=== PATIENT | male | born 1955 | race Caucasian/White ===

== ENCOUNTER 2021-01-08 14:09 | Observation (INO) ==
[2021-01-08 15:33] LABS: Basophils % 0.8 % (0.0-0.8); Eosinophils % 1.6 % (0.00-10.9); Hematocrit 37.8 VOL% (42.0-52.0); Hemoglobin 12.9 GM/DL (14.0-18.0); Immature Granulocytes % 0.8 %; Immature Granulocytes Absolute 0.01 #; Lymphocytes # 0.7 10*3/uL (1.4-4.0); Lymphocytes % 52.4 % (21.2-54.2); Mean Corpuscular HGB Conc 34.1 GM/DL (32-36); Mean Corpuscular Volume 91.5 FL (87-102); Mean Platelet Volume 9.2 FL (9.6-12.0); Monocytes % 37.3 % (1.7-12.7); Neutrophils % 7.1 % (38.7-73.9); Platelet Count 129 T/CUMM (130-400); Red Blood Count 4.13 MC/CUMM (3.8-5.5); Red Cell Distribution Width 14.5 % (9.3-17.3); White Blood Count 1.3 T/CUMM (4-12)
[2021-01-08 15:50] LABS: Albumin 3.9 G/DL (3.4-5.0); Bilirubin,Total 1.3 MG/DL (0.20-1.00); Calcium 9.5 MG/DL (8.5-10.1); Potassium 3.6 MMOL/L (3.5-5.1); Total Protein 7.3 G/DL (6.4-8.2)
[2021-01-08 16:29] LABS: Eosinophils 2 % (0-10); Lymphocytes 57 % (20-55); Nucleated Red Blood Cells 2 (0-5); Segmented Neutrophils 1 % (50-85); Total Cells Counted 100
[2021-01-08 16:30] LABS: Anisocytosis Slight
[2021-01-08 16:31] LABS: Platelet Estimate Decreased; Polychromasia Slight
[2021-01-08 17:10] LABS: Bilirubin,Urine Negative (Negative); Blood, Urine Small mg/dL (Negative); Glucose,Urine (UA) >=500 mg/dL (Negative); Ketones,Urine 5 mg/dL (Negative); Mucus,Urine Occasional /LPF (Occasional); Nitrite,Urine Negative (Negative); Protein,Urine Negative; RBC,Urine 3 /HPF (0-4); Urine Appearance CLEAR (Clear); Urine Color Yellow (Yellow); Urine Specific Gravity 1.036 (1.001-1.035); Urine Urobilinogen < 2.0 EU/DL (0.2-1.0)
[2021-01-08] MEDS ORDERED: GLUCAGON 1 MG VIAL IM PRN (17:28)
[2021-01-08] MEDS ORDERED: ONDANSETRON 4 MG/2 ML VIAL IV PRN (17:28)
[2021-01-08] MEDS ORDERED: NICOTINE 14 MG/24 HR PATCH TRANSDERM PRN (17:36)
[2021-01-08] MEDS ORDERED: DEXTROSE 50% 25 GM/50 ML SYRINGE IV PRN (17:40)
[2021-01-08] MEDS: SODIUM CHLORIDE 0.9% 1,000 ML IV SCH (17:43)
[2021-01-08] MEDS ORDERED: FILGRASTIM-SNDZ 300 MCG/0.5 ML SYRINGE SUBCUT ONE (17:55)
[2021-01-08] MEDS: INSULIN LISPRO 100 UNIT/ML SUBCUT SCH (19:00)
[2021-01-08] MEDS ORDERED: MYLANTA/LIDO VISC 2:1 300 ML BOTTLE SWISH/SWAL PRN (19:49)
[2021-01-08] MEDS ORDERED: INSULIN LISPRO 100 UNIT/ML SUBCUT SCH (21:00)
[2021-01-08] MEDS ORDERED: PANTOPRAZOLE 40 MG VIAL IV SCH (21:00)
[2021-01-09] MEDS: INSULIN LISPRO 100 UNIT/ML SUBCUT SCH ×3 (00:22→11:46)
[2021-01-09] MEDS: SODIUM CHLORIDE 0.9% 1,000 ML IV SCH (03:52)
[2021-01-09 05:09] LABS: Eosinophils % 3.1 % (0.00-10.9); Hematocrit 34.8 VOL% (42.0-52.0); Hemoglobin 11.9 GM/DL (14.0-18.0); Lymphocytes # 0.5 10*3/uL (1.4-4.0); Lymphocytes % 47.9 % (21.2-54.2); Mean Corpuscular HGB Conc 34.2 GM/DL (32-36); Mean Platelet Volume 9.2 FL (9.6-12.0); Monocytes % 40.6 % (1.7-12.7); Neutrophils % 7.4 % (38.7-73.9); Platelet Count 108 T/CUMM (130-400); Red Blood Count 3.74 MC/CUMM (3.8-5.5); Red Cell Distribution Width 14.3 % (9.3-17.3)
[2021-01-09 05:34] LABS: Band Neutrophils 1 % (0-10); Lymphocytes 47 % (20-55); Platelet Estimate Adequate; Segmented Neutrophils 10 % (50-85); Total Cells Counted 100
[2021-01-09 05:47] LABS: Albumin 3.4 G/DL (3.4-5.0); Bilirubin,Total 2.6 MG/DL (0.20-1.00); Osmolality,Calculated 279.7 MOS/KG (273-304); Potassium 3.7 MMOL/L (3.5-5.1); Risk Ratio 3.78; Thyroid Stimulating Hormone 0.368 uIU/ml (0.358-3.74); Total Protein 6.4 G/DL (6.4-8.2); VLDL Cholesterol 30.4 MG/DL
[2021-01-09] MEDS ORDERED: FILGRASTIM-SNDZ 480 MCG/0.8 ML SYRINGE SUBCUT ONE (11:22)
[2021-01-09] MEDS ORDERED: CEFEPIME 1,000 MG in SODIUM CHLORIDE 0.9% 100 ML IV SCH (12:00)
[2021-01-09 13:25] VITALS: BP 114/59
[2021-01-09] MEDS ORDERED: PANTOPRAZOLE 40 MG TABLET PO SCH (21:00)
== END 2021-01-09 15:05 | disposition home or self-care (01) ==
LOC: N.EDINP 14:09 → N.ED 14:09 → N.2E 19:27
PROVIDERS: ADMIT Internal Medicine; ATTEND Internal Medicine